=== PATIENT | male | born 1950 | race Caucasian/White ===

== ENCOUNTER 2016-07-30 22:48 | Emergency (ER) | payer BC ==
[~2016-07-30] VITALS: Ht 167.6 cm; Wt 61.4 kg
[~2016-07-30 22:48] MED LIST: ASPIRIN 32325 MG/TAB PO; BYSTOLIC5 MG PO; CENTRUM SILVER1 CTB PO; CHOLESTOFF PO; COLACE 100100 MG/CAP PO; COQ10150 MG PO; COREG 25MG25 MG/TAB PO; CURCUMIN95% PO; FERROUS SULFATE65 MG PO; FISH OIL1 IU PO; FISH OIL500 MG PO; MAALOX PLUS / M30 ML PO; MAGIMIN-FORTE250 MG PO; MAGNESIUM250 M1 PO; MILK OF MA400 MG/5 M PO; NIACIN 100100 MG/TAB PO; NIACIN500 M3 PO; NITROSTAT0.4 MG/TAB SL; PEPCID 20MG TAB20 MG PO; SIMVASTATIN20 MG PO; TYLENOL 325MG325 MG PO; VITAMIN D1000 IU PO; ZIAC 2.5/6.25MG1 TAB
[2016-07-30 22:51] VITALS: TEMP 97.5
[2016-07-30 23:51] LABS: BASO # 0.1 (0.0-0.2); BASO % 0.7 % (0.0-2.0); EOS # 0.3 (0.0-0.7); EOS % 2.7 % (0-4.0); GRAN # 6.4 (1.4-6.5); GRAN % 55.4 % (42.2-75.2); HEMATOCRIT 37.3 % (42.0-52.0); HEMOGLOBIN 12.8 g/dl (13.5-18.0); LYMPH # 3.8 (1.2-3.4); LYMPH % 32.6 % (20.0-51.0); MEAN CELL VOLUME 94 fl (80.0-100.0); MEAN CORPUSCULAR HEMOGLOBIN 32 pg (27.0-31.0); MEAN CORPUSCULAR HGB CONC 34 g/dl (33.0-37.0); MONO % 8.3 % (1.7-9.3); PLATELET COUNT 166 K/mm3 (130-400); RED BLOOD COUNT 3.95 M/mm3 (4.20-5.60); REDCELL DISTRIBUTION WIDTH-CV 13.3 % (11.5-14.5); WHITE BLOOD COUNT 11.6 K/mm3 (4.8-10.8)
[2016-07-31 00:04] LABS: ADJUSTED CALCIUM 9.4 mg/dL (8.4-10.2); ALANINE AMINOTRANSFERASE 32 U/L (21-72); ALBUMIN 3.6 gm/dL (3.5-5.0); ALKALINE PHOSPHATASE 94 U/L (50-136); ANION GAP 8 mmol/L (7-16); BILIRUBIN,TOTAL 0.8 mg/dL (0.0-1.0); BLOOD UREA NITROGEN 19 mg/dL (9-20); CALCIUM 9.1 mg/dL (8.4-10.2); CARBON DIOXIDE 27 mmol/L (22-30); CHLORIDE 103 mmol/L (98-107); CREATININE, serum 0.88 mg/dL (0.66-1.25); GLUCOSE 118 mg/dL (74-106); POTASSIUM 3.6 mmol/L (3.4-5.0); SODIUM 139 mmol/L (137-145)
[2016-07-31 00:21] LABS: C-REACTIVE PROTEIN < 0.5 mg/dL (0.0-0.9); TROPONIN-I < 0.012 ng/mL (0.000-0.034)
[2016-07-31 01:02] VITALS: BP 121/67; PULSE 58
== END 2016-07-31 01:13 | disposition home or self-care (01) ==
LOC: COL.ER 22:48
PROVIDERS: Emergency Medicine
DX: R55 Syncope and collapse (principal); I25.10 Atherosclerotic heart disease of native coronary artery without angina pectoris; I10 Essential (primary) hypertension; Z95.1 Presence of aortocoronary bypass graft
CPT/HCPCS: J7030

== ENCOUNTER 2018-02-27 13:37 | Outpatient (RCR) | payer BC | END 2018-03-06 05:59 | disposition home or self-care (01) | LOC: COL.CR 13:37 | DX: Z48.812 Encounter for surgical aftercare following surgery on the circulatory system (principal); Z95.5 Presence of coronary angioplasty implant and graft; I24.9 Acute ischemic heart disease, unspecified ==

== ENCOUNTER 2018-05-29 13:18 | Outpatient (RCR) | payer SELFPAY | END 2018-05-31 | disposition home or self-care (01) | LOC: COL.CR | DX: Z02.89 Encounter for other administrative examinations (principal) ==

== ENCOUNTER 2018-08-28 15:06 | Outpatient (RCR) | payer SELFPAY | END 2018-08-30 | disposition home or self-care (01) | LOC: COL.CR | DX: Z02.89 Encounter for other administrative examinations (principal) ==

== ENCOUNTER 2018-11-27 11:56 | Outpatient (RCR) | payer SELFPAY | END 2018-11-29 | disposition home or self-care (01) | LOC: COL.CR | DX: Z02.89 Encounter for other administrative examinations (principal) ==

== ENCOUNTER → 2018-12-08 | Outpatient (CLI) | payer BC | LOC: COL.VAS 12:39 | DX: I65.23 Occlusion and stenosis of bilateral carotid arteries (principal) ==

== ENCOUNTER 2019-02-26 11:54 | Outpatient (RCR) | payer SELFPAY | END 2019-02-28 | disposition home or self-care (01) | LOC: COL.CR | DX: Z02.89 Encounter for other administrative examinations (principal) ==

== ENCOUNTER 2019-05-28 16:12 | Outpatient (RCR) | payer SELFPAY | END 2019-05-30 | disposition home or self-care (01) | LOC: COL.CR | DX: Z02.89 Encounter for other administrative examinations (principal) ==

== ENCOUNTER 2019-11-12 13:20 | Outpatient (RCR) | payer SELFPAY ==
[2019-11-13] MEDS ORDERED: COZAAR100 MG PO (07:30)
[2019-11-13] MEDS ORDERED: REPATHA SU140 MG/1 M SQ (07:31)
[2019-11-13] MEDS ORDERED: IBU400 MG PO (07:32)
== END 2019-11-18 | disposition home or self-care (01) ==
LOC: COL.CR
DX: Z02.89 Encounter for other administrative examinations (principal)

== ENCOUNTER 2019-11-13 06:56 | Emergency (ER) | payer BC ==
[~2019-11-13] VITALS: Ht 170.2 cm; Wt 59.1 kg
[2019-11-13 07:01] VITALS: TEMP 97.7
[2019-11-13 07:21] LABS: BASO # 0.1 (0.0-0.2); BASO % 1.4 % (0.0-2.0); EOS # 0.2 (0.0-0.7); EOS % 3.3 % (0-4.0); GRAN # 3.7 (1.4-6.5); GRAN % 55.8 % (42.2-75.2); HEMOGLOBIN 13.3 g/dl (13.5-18.0); LYMPH % 30.4 % (20.0-51.0); MEAN CELL VOLUME 95 fl (80.0-100.0); MEAN CORPUSCULAR HEMOGLOBIN 32 pg (27.0-31.0); MEAN CORPUSCULAR HGB CONC 34 g/dl (33.0-37.0); MEAN PLATELET VOLUME 11.1 fl (7.4-10.4); MONO # 0.6 (0.1-0.6); MONO % 8.9 % (1.7-9.3); PLATELET COUNT 163 K/mm3 (130-400); RED BLOOD COUNT 4.11 M/mm3 (4.20-5.60)
[2019-11-13] MEDS ORDERED: COZAAR100 MG PO (07:30)
[2019-11-13 07:31] LABS: BILIRUBIN,TOTAL 0.9 mg/dL (0.0-1.0); CALCIUM 9.5 mg/dL (8.4-10.2); CREATININE, serum 0.93 (0.66-1.25); INR 1.2 (0.8-3.0); POTASSIUM 4.3 mmol/L (3.4-5.0); PROTHROMBIN TIME 13.8 SECONDS (9.7-12.8); TOTAL PROTEIN 6.8 gm/dL (6.4-8.2)
[2019-11-13] MEDS ORDERED: REPATHA SU140 MG/1 M SQ (07:31)
[2019-11-13] MEDS ORDERED: IBU400 MG PO (07:32)
[2019-11-13 07:33] LABS: PARTIAL THROMBOPLASTIN TIME 27.1 SECONDS (26.0-37.0)
[2019-11-13 07:45] LABS: TROPONIN-I 0.048 ng/mL (0.000-0.035)
[2019-11-13 09:22] VITALS: BP 130/75; PULSE 51
== END 2019-11-13 09:22 | disposition short-term general hospital (02) ==
LOC: COL.ER 06:56
PROVIDERS: Emergency Medicine
DX: R07.89 Other chest pain (principal); I25.10 Atherosclerotic heart disease of native coronary artery without angina pectoris; Z79.82 Long term (current) use of aspirin
CPT/HCPCS: J1644

== ENCOUNTER 2020-02-28 13:28 | Outpatient (RCR) | payer SELFPAY ==
[~2020-02-28 13:28] MED LIST changes: +COZAAR100 MG PO; +IBU400 MG PO; +REPATHA SU140 MG/1 M SQ
== END 2020-02-29 | disposition home or self-care (01) ==
LOC: COL.CR
DX: Z02.89 Encounter for other administrative examinations (principal)

== ENCOUNTER 2020-05-29 14:38 | Outpatient (RCR) | payer SELFPAY | END 2020-05-30 | disposition home or self-care (01) | LOC: COL.CR | DX: Z02.89 Encounter for other administrative examinations (principal) ==

== ENCOUNTER 2020-08-25 16:21 | Outpatient (RCR) | payer SELFPAY | END 2020-08-29 | disposition home or self-care (01) | LOC: COL.CR | DX: Z02.89 Encounter for other administrative examinations (principal) ==

== ENCOUNTER 2021-07-20 10:21 | Outpatient (RCR) | payer SELFPAY | END 2021-07-21 | LOC: COL.CR | DX: Z29.8 Encounter for other specified prophylactic measures (principal) ==

== ENCOUNTER 2021-08-17 12:13 | Outpatient (RCR) | payer SELFPAY | END 2021-08-21 | LOC: COL.CR | DX: Z29.8 Encounter for other specified prophylactic measures (principal) ==

== ENCOUNTER 2021-09-19 14:57 | Outpatient (RCR) | payer SELFPAY | END 2021-09-20 | LOC: COL.CR | DX: Z29.8 Encounter for other specified prophylactic measures (principal) ==

== ENCOUNTER 2021-10-05 13:46 | Outpatient (RCR) | payer SELFPAY | END 2021-10-21 | LOC: COL.CR | DX: Z29.8 Encounter for other specified prophylactic measures (principal) ==

== ENCOUNTER → 2021-11-21 | Outpatient (RCR) | payer SELFPAY | LOC: COL.CR | DX: Z29.8 Encounter for other specified prophylactic measures (principal) ==